=== PATIENT | female | born 1955 | race Caucasian/White ===

== ENCOUNTER 2017-03-26 07:54 | Day surgery (SDC) | payer MEDICARE, OTHER ==
[2017-03-26] MEDS ORDERED: Lactated Ringer's 500 ML IV ONE (08:36)
[2017-03-26 08:58] VITALS: TEMP 97.9; O2SAT 100
[2017-03-26 10:52] VITALS: BP 119/55; PULSE 67; RESP 14
== END 2017-03-26 11:30 | disposition home or self-care (01) ==
LOC: H.ENDO 07:54
PROVIDERS: ATTEND Internal Medicine Gastroenterology
DX: Z12.11 Encounter for screening for malignant neoplasm of colon (principal); J45.909 Unspecified asthma, uncomplicated; E78.5 Hyperlipidemia, unspecified; K57.30 Diverticulosis of large intestine without perforation or abscess without bleeding; K64.0 First degree hemorrhoids
CPT/HCPCS: 45378; J7120